=== PATIENT | female | born 1955 | race Caucasian/White ===

== ENCOUNTER → 2021-01-14 | Day surgery (SDC) | payer MEDICARE, OTHER ==
[~2021-01-14] VITALS: Ht 160 cm; Wt 96.2 kg
[~2021-01-14] MED LIST: ALLOPURINOL300 MG PO; ASPIRIN EC81 MG PO; CARAFATE1 GM PO; COLESTID 1GM TAB1 GM PO; DICLOFENAC SODI75 MG PO; GABAPENTIN600 MG PO; LASIX40 MG PO; LISINOPRIL20 MG PO; MACROBID100 MG PO; MIRALAX17 GM PO; PAXIL20 MG PO; PEPCID AC20 MG PO; PERCOCET 10-321 EACH PO; PERCOCET 5-3251 EACH PO; PRILOSEC20 MG PO; PROTONIX 40MG T40 MG PO; XANAX0.25 MG PO; ZOCOR20 MG PO; ZOFRAN4 M1 PO
[2021-01-14 08:38] LABS: HCT 25.8 % (37.0-47.0); HGB 8.1 g/dl (12.5-16.0); MCH 26.4 pg (25.0-31.0); MCHC 31.4 g/dL (32.0-36.0); MPV 8.5 fL (6.0-9.5); RBC 3.07 M/uL (4.20-5.40); RDW 13.9 % (11.5-14.0); WBC 8.2 K/uL (4.0-10.5)
[2021-01-14 09:27] LABS: ALBUMIN 2.9 g/dL (3.4-5.0); BILIRUBIN - TOTAL 0.5 mg/dL (0.2-1.0); BUN/CREAT RATIO (CALC) 18.7 RATIO; CREATININE 0.91 mg/dL (0.51-0.95); GLOBULIN (CALCULATION) 3.9 g/dL; POTASSIUM 3.7 mmol/L (3.5-5.1); TOTAL PROTEIN 6.8 g/dL (6.4-8.2)
== END | disposition home or self-care (01) ==
LOC: FAS 01-06 08:30
PROVIDERS: Surgery
DX: K25.7 Chronic gastric ulcer without hemorrhage or perforation (principal); B96.81 Helicobacter pylori [H. pylori] as the cause of diseases classified elsewhere; K21.9 Gastro-esophageal reflux disease without esophagitis; I10 Essential (primary) hypertension; J45.909 Unspecified asthma, uncomplicated; F31.9 Bipolar disorder, unspecified; I12.9 Hypertensive chronic kidney disease with stage 1 through stage 4 chronic kidney disease, or unspecified chronic kidney disease; N18.9 Chronic kidney disease, unspecified; I25.10 Atherosclerotic heart disease of native coronary artery without angina pectoris; F03.90 Unspecified dementia, unspecified severity, without behavioral disturbance, psychotic disturbance, mood disturbance, and anxiety; E11.65 Type 2 diabetes mellitus with hyperglycemia; E78.00 Pure hypercholesterolemia, unspecified; M81.0 Age-related osteoporosis without current pathological fracture; M06.9 Rheumatoid arthritis, unspecified; G47.30 Sleep apnea, unspecified; Z79.899 Other long term (current) drug therapy; Z90.710 Acquired absence of both cervix and uterus; Z91.041 Radiographic dye allergy status; Z90.49 Acquired absence of other specified parts of digestive tract; Z20.822 Contact with and (suspected) exposure to COVID-19
CPT/HCPCS: 36415; 80053; 88305; 88341; 88342; J1610; J2250; J2704; J7120

== ENCOUNTER 2021-04-14 16:44 | Inpatient (IN) | payer MEDICARE, OTHER ==
[~2021-04-14] VITALS: Ht 160 cm; Wt 81.3 kg
[~2021-04-14 16:44] MED LIST changes: -CARAFATE1 GM PO; -MACROBID100 MG PO; -MIRALAX17 GM PO; -PERCOCET 5-3251 EACH PO; -PRILOSEC20 MG PO; -XANAX0.25 MG PO; -ZOFRAN4 M1 PO
[2021-04-14 18:21] LABS: BASOPHIL 0.3 % (0-2); EOSINOPHIL 1.1 % (0-7); HCT 17.6 % (37.0-47.0); LYMPHOCYTE 16.4 % (15-48); MCH 21.3 pg (25.0-31.0); MCV 73.6 fL (78.0-100.0); MONOCYTE 7.1 % (0-12); MPV 8.8 fL (6.0-9.5); NEUTROPHIL 74.4 % (41-80); NRBC 0.5; PLT 613 K/uL (150-400); RBC 2.39 M/uL (4.20-5.40); RDW 16.2 % (11.5-14.0); WBC 8.8 K/uL (4.0-10.5)
[2021-04-14 18:22] LABS: HGB 5.1 g/dl (12.5-16.0)
[2021-04-14 18:26] LABS: ALBUMIN 2.9 g/dL (3.4-5.0); BILIRUBIN - TOTAL 0.3 mg/dL (0.2-1.0); BUN/CREAT RATIO (CALC) 20.5 RATIO; CREATININE 0.83 mg/dL (0.51-0.95); POTASSIUM 3.6 mmol/L (3.5-5.1); TOTAL PROTEIN 6.9 g/dL (6.4-8.2)
[2021-04-14 18:28] LABS: BILIRUBIN 1+ mg/dL (NEGATIVE); BLOOD NEGATIVE Ery/uL (NEGATIVE); COLOR YELLOW (YELLOW); GLUCOSE (U) NORMAL (NORMAL); LEUKOCYTES 1+ Leu/uL (NEGATIVE); NITRITE NEGATIVE (NEGATIVE); PROTEIN TRACE (LOW) mg/dL (NEGATIVE); SPECIFIC GRAVITY 1.025 (1.001-1.030); pH 5.5 (5.0-9.0)
[2021-04-14 18:34] LABS: CLARITY HAZY (CLEAR)
[2021-04-14 18:35] LABS: BACTERIA 1+; URINARY RBC RARE
[2021-04-14 18:36] LABS: MUCOUS TRACE; RENAL EPITHELIAL CELLS RARE
[2021-04-14 22:22] LABS: IRON % SATURATION 2.1 %SAT (20-50)
[2021-04-14] MEDS ORDERED: XANAX0.25 MG PO (23:49)
[2021-04-15 10:18] LABS: BASOPHIL 0.5 % (0-2); HCT 23.7 % (37.0-47.0); LYMPHOCYTE 13.3 % (15-48); MCH 24.6 pg (25.0-31.0); MCHC 32.1 g/dL (32.0-36.0); MCV 76.7 fL (78.0-100.0); MONOCYTE 7.3 % (0-12); MPV 8.4 fL (6.0-9.5); NEUTROPHIL 76.4 % (41-80); NRBC 0.3; PLT 377 K/uL (150-400); RBC 3.09 M/uL (4.20-5.40); RDW 16.9 % (11.5-14.0); WBC 6.5 K/uL (4.0-10.5)
[2021-04-15 10:21] LABS: HGB 7.6 g/dl (12.5-16.0)
[2021-04-15 10:36] LABS: BUN/CREAT RATIO (CALC) 25.8 RATIO; CREATININE 0.62 mg/dL (0.51-0.95); POTASSIUM 4.1 mmol/L (3.5-5.1)
[2021-04-15 16:06] LABS: HCT 23.7 % (37.0-47.0); HGB 7.5 g/dL (12.5-16.0)
[2021-04-15 23:09] LABS: HCT 22.9 % (37.0-47.0); HGB 7.4 g/dL (12.5-16.0)
[2021-04-16 09:34] LABS: BASOPHIL 0.4 % (0-2); EOSINOPHIL 2.5 % (0-7); HCT 31.4 % (37.0-47.0); LYMPHOCYTE 13.6 % (15-48); MCH 24.9 pg (25.0-31.0); MCHC 31.8 g/dL (32.0-36.0); MCV 78.3 fL (78.0-100.0); MONOCYTE 7.8 % (0-12); MPV 8.4 fL (6.0-9.5); NEUTROPHIL 75.2 % (41-80); NRBC 0.3; PLT 361 K/uL (150-400); RBC 4.01 M/uL (4.20-5.40); RDW 16.6 % (11.5-14.0); WBC 7.7 K/uL (4.0-10.5)
[2021-04-16 09:47] LABS: CREATININE 0.6 mg/dL (0.51-0.95); POTASSIUM 4.4 mmol/L (3.5-5.1)
--- NOTE | 2021-04-16 12:00 | NUR ---
MET WITH PT. ADVISED HER THAT THERAPY HAS RECOMMENDED HH WELL A RW. PT. WOULD LIKE TO WAIT BEFORE CHOOSING A HH UNTIL SHE SPEAKS WITH HER SONS. IT IS POSSIBLE SHE MAY GO TO STAY WITH HER SON WHO LIVES IN [facility]. SENT REQUEST TO PERLA AT [facility] FOR RW.
[2021-04-16 16:11] LABS: HCT 31.9 % (37.0-47.0)
[2021-04-16 16:15] LABS: HGB 10.5 g/dL (12.5-16.0)
[2021-04-17 04:44] LABS: BASOPHIL 0.6 % (0-2); EOSINOPHIL 2.6 % (0-7); HCT 30.5 % (37.0-47.0); HGB 9.6 g/dl (12.5-16.0); LYMPHOCYTE 22.2 % (15-48); MCH 24.9 pg (25.0-31.0); MCHC 31.5 g/dL (32.0-36.0); MONOCYTE 9.3 % (0-12); MPV 8.5 fL (6.0-9.5); NEUTROPHIL 64.7 % (41-80); NRBC 0; PLT 290 K/uL (150-400); RBC 3.86 M/uL (4.20-5.40); RDW 16.9 % (11.5-14.0); WBC 7.8 K/uL (4.0-10.5)
[2021-04-17 05:04] LABS: BUN/CREAT RATIO (CALC) 21.9 RATIO; CREATININE 0.73 mg/dL (0.51-0.95); POTASSIUM 4.2 mmol/L (3.5-5.1)
--- NOTE | 2021-04-17 11:01 | NUR ---
PT. WILL BE D/C HOME THIS DATE AND HER SON,RACIEL PEARSON, WILL BE STAYING WITH HER. SHE NEEDS TO GO THE PAIN CLINIC ON TUESDAY AT 3:30 P.M. AFTER THAT SHE WILL BE GOING TO HER SON'S HOME [place] [address] [place] [address] [phone]. NURSE, TOR, STATED THAT IT WOULD BE OK FOR HOMEHEALTH TO START ON TUESDAY WHEN THE PT. GOES TO THE SON'S HOME. PT AND SON IN AGREEMENT. PT. WILL BE GOING WITH JOSÉ LUIS AU. REFERRAL MADE THROUGH [facility]. [phone]. FAX [phone].
[2021-04-17] MEDS ORDERED: MIRALAX17 GM PO (17:38)
[2021-04-17] MEDS ORDERED: PERCOCET 10-321 EACH PO (17:38)
[2021-04-17] MEDS ORDERED: CARAFATE1 GM PO (17:38)
[2021-04-17] MEDS ORDERED: PROTONIX 40MG T40 MG PO (17:38)
[2021-04-17] MEDS ORDERED: ZOFRAN4 M1 PO (17:47)
[2021-04-17] MEDS ORDERED: PRILOSEC20 MG PO (18:03)
== END 2021-04-17 18:33 | disposition home health service (06) | DRG 841 ==
LOC: FER 16:44 → FMS 18:35
PROVIDERS: Emergency Medicine; Internal Medicine; Nurse Practitioner; Surgery; ADMIT Hospitalist
PROC: 30233N1 Transfusion of Nonautologous Red Blood Cells into Peripheral Vein, Percutaneous Approach (ICD-10-PCS; principal; 2021-04-14)
PROC: 0DB78ZX Excision of Stomach, Pylorus, Via Natural or Artificial Opening Endoscopic, Diagnostic (ICD-10-PCS; 2021-04-15)
PROC: 30233N1 Transfusion of Nonautologous Red Blood Cells into Peripheral Vein, Percutaneous Approach (ICD-10-PCS; 2021-04-15 12:45)
PROC: 30233N1 Transfusion of Nonautologous Red Blood Cells into Peripheral Vein, Percutaneous Approach (ICD-10-PCS; 2021-04-16)
DX: C85.99 Non-Hodgkin lymphoma, unspecified, extranodal and solid organ sites (principal); D62 Acute posthemorrhagic anemia; K92.1 Melena; I10 Essential (primary) hypertension; F41.1 Generalized anxiety disorder; E11.65 Type 2 diabetes mellitus with hyperglycemia; D86.9 Sarcoidosis, unspecified; M10.9 Gout, unspecified; E78.5 Hyperlipidemia, unspecified; G47.30 Sleep apnea, unspecified; G89.4 Chronic pain syndrome; Z20.822 Contact with and (suspected) exposure to COVID-19; F32.9 Major depressive disorder, single episode, unspecified; Z90.49 Acquired absence of other specified parts of digestive tract; Z90.710 Acquired absence of both cervix and uterus; Z98.890 Other specified postprocedural states; Z91.041 Radiographic dye allergy status; Z79.899 Other long term (current) drug therapy; Z87.11 Personal history of peptic ulcer disease
CPT/HCPCS: 36415; 36430; 70450; 80048; 80053; 81001; 82270; 82728; 83036; 83540; 83550; 84484; 85014; 85018; 85025; 86850; 86900; 86901; 86922; 87338; 97161; 97166; 97530-GP; 97535; C9113; G0378; J1200; J2250; J2704; J2916; J2930; J7030; J7050; J7120; P9016; Q9967; U0002

== ENCOUNTER 2021-05-17 19:09 | Emergency (ER) | payer MEDICARE, OTHER ==
[~2021-05-17 19:09] MED LIST changes: +CARAFATE1 GM PO; +MIRALAX17 GM PO; +PRILOSEC20 MG PO; +XANAX0.25 MG PO; +ZOFRAN4 M1 PO
[2021-05-17 19:45] LABS: BASOPHIL 0.4 % (0-2); EOSINOPHIL 1.3 % (0-7); HCT 28.5 % (37.0-47.0); HGB 9.1 g/dl (12.5-16.0); MCH 25.3 pg (25.0-31.0); MCHC 31.9 g/dL (32.0-36.0); MCV 79.4 fL (78.0-100.0); MONOCYTE 8.9 % (0-12); MPV 8.9 fL (6.0-9.5); NRBC 0.2; PLT 296 K/uL (150-400); RBC 3.59 M/uL (4.20-5.40); RDW 17.8 % (11.5-14.0); WBC 9.2 K/uL (4.0-10.5)
[2021-05-17 20:01] LABS: LACTIC ACID 1.3 mmol/L (0.4-1.9)
[2021-05-17 20:03] LABS: ALBUMIN 2.9 g/dL (3.4-5.0); BILIRUBIN - TOTAL 0.5 mg/dL (0.2-1.0); BUN/CREAT RATIO (CALC) 26.6 RATIO; CREATININE 0.64 mg/dL (0.51-0.95); GLOBULIN (CALCULATION) 3.7 g/dL; TOTAL PROTEIN 6.6 g/dL (6.4-8.2)
[2021-05-17 21:16] LABS: BILIRUBIN 1+ mg/dL (NEGATIVE); BLOOD NEGATIVE Ery/uL (NEGATIVE); CLARITY CLEAR (CLEAR); COLOR YELLOW (YELLOW); GLUCOSE (U) NORMAL (NORMAL); LEUKOCYTES TRACE Leu/uL (NEGATIVE); NITRITE NEGATIVE (NEGATIVE); PROTEIN 1+ mg/dL (NEGATIVE); SPECIFIC GRAVITY >=1.030 (1.001-1.030)
[2021-05-17 21:23] LABS: BACTERIA 2+; MUCOUS TRACE
[2021-05-17] MEDS ORDERED: MACROBID100 MG PO (22:43)
== END 2021-05-17 23:20 | disposition home or self-care (01) ==
LOC: FER 19:09
PROVIDERS: Emergency Medicine
DX: N39.0 Urinary tract infection, site not specified (principal); J98.6 Disorders of diaphragm; R41.0 Disorientation, unspecified; Z91.041 Radiographic dye allergy status
CPT/HCPCS: 36415; 70450; 71045; 80053; 81001; 83605; 83690; 84443; 85025; 87076; 87088; 87186; 93005

== ENCOUNTER 2021-05-23 14:44 | Inpatient (IN) | payer MEDICARE, OTHER ==
[~2021-05-23] VITALS: Ht 158 cm; Wt 74.5 kg
[~2021-05-23 14:44] MED LIST changes: +MACROBID100 MG PO
[2021-05-23 16:06] LABS: BASOPHIL 0.4 % (0-2); EOSINOPHIL 0.2 % (0-7); HCT 29.4 % (37.0-47.0); HGB 9.3 g/dl (12.5-16.0); LYMPHOCYTE 8.8 % (15-48); MCH 25.6 pg (25.0-31.0); MCHC 31.6 g/dL (32.0-36.0); MONOCYTE 5.1 % (0-12); MPV 9.2 fL (6.0-9.5); NRBC 0; PLT 408 K/uL (150-400); RBC 3.63 M/uL (4.20-5.40); RDW 17.6 % (11.5-14.0); WBC 10.3 K/uL (4.0-10.5)
[2021-05-23 16:10] LABS: INR 1.08 (0.9-1.2); PROTHROMBIN TIME 13.4 SECONDS (11.8-13.4)
[2021-05-23 16:21] LABS: LACTIC ACID 1.9 mmol/L (0.4-1.9)
[2021-05-23 16:23] LABS: ALBUMIN 2.6 g/dL (3.4-5.0); BILIRUBIN - TOTAL 0.5 mg/dL (0.2-1.0); BUN/CREAT RATIO (CALC) 52.7 RATIO; CREATININE 0.55 mg/dL (0.51-0.95); GLOBULIN (CALCULATION) 4.1 g/dL; POTASSIUM 4.7 mmol/L (3.5-5.1); TOTAL PROTEIN 6.7 g/dL (6.4-8.2)
[2021-05-23 20:40] LABS: BILIRUBIN 2+ mg/dL (NEGATIVE); BLOOD NEGATIVE Ery/uL (NEGATIVE); CLARITY CLEAR (CLEAR); COLOR YELLOW (YELLOW); GLUCOSE (U) NORMAL (NORMAL); LEUKOCYTES TRACE Leu/uL (NEGATIVE); NITRITE NEGATIVE (NEGATIVE); PROTEIN 1+ mg/dL (NEGATIVE)
[2021-05-23 20:45] LABS: BACTERIA 1+
[2021-05-23 21:37] LABS: HCT 25.1 % (37.0-47.0); HGB 7.7 g/dL (12.5-16.0)
[2021-05-24 04:14] LABS: BASOPHIL 0.3 % (0-2); EOSINOPHIL 0.4 % (0-7); HCT 19.9 % (37.0-47.0); LYMPHOCYTE 17.2 % (15-48); MCH 25.5 pg (25.0-31.0); MCHC 32.2 g/dL (32.0-36.0); MCV 79.3 fL (78.0-100.0); MONOCYTE 7.9 % (0-12); MPV 9.1 fL (6.0-9.5); NEUTROPHIL 73.7 % (41-80); NRBC 0; PLT 307 K/uL (150-400); RBC 2.51 M/uL (4.20-5.40); RDW 17.3 % (11.5-14.0)
[2021-05-24 04:19] LABS: HGB 6.4 g/dl (12.5-16.0)
[2021-05-24 04:39] LABS: ALBUMIN 1.9 g/dL (3.4-5.0); BILIRUBIN - TOTAL 0.3 mg/dL (0.2-1.0); BUN/CREAT RATIO (CALC) 51.9 RATIO; CREATININE 0.54 mg/dL (0.51-0.95); GLOBULIN (CALCULATION) 3.3 g/dL; POTASSIUM 3.6 mmol/L (3.5-5.1); TOTAL PROTEIN 5.2 g/dL (6.4-8.2)
--- NOTE | 2021-05-24 10:31 | NUR ---
PRBC FINISHED AT 1014, PATIENT TOLERATED WELL, NO ISSUES OR COMPLAINTS AT THIS TIME.
--- NOTE | 2021-05-24 10:39 | NUR ---
BLOOD PRUDUCT NOT DOCUMENTED IN TAR PER PREVIOUS SHIFT, SEE PAPER CHARTING.
[2021-05-24 11:17] LABS: HCT 26.2 % (37.0-47.0); HGB 8.8 g/dL (12.5-16.0)
[2021-05-24 17:08] LABS: HCT 26.5 % (37.0-47.0); HGB 8.8 g/dL (12.5-16.0)
[2021-05-24 17:28] LABS: RETICULOCYTE COUNT 2.9 % (1.0-2.0)
[2021-05-24 17:32] LABS: IRON % SATURATION 17.7 %SAT (20-50)
[2021-05-24 18:01] LABS: FOLIC ACID (SERUM) 2.4 ng/mL (8.6-58.9)
[2021-05-24 23:24] LABS: HCT 31.6 % (37.0-47.0); HGB 10.6 g/dL (12.5-16.0)
[2021-05-25 06:24] LABS: BASOPHIL 0.5 % (0-2); EOSINOPHIL 0.9 % (0-7); HCT 26.6 % (37.0-47.0); LYMPHOCYTE 15.8 % (15-48); MCH 26.4 pg (25.0-31.0); MCHC 32.7 g/dL (32.0-36.0); MCV 80.6 fL (78.0-100.0); NEUTROPHIL 75.5 % (41-80); NRBC 0; PLT 307 K/uL (150-400); WBC 6.3 K/uL (4.0-10.5)
[2021-05-25 06:27] LABS: CREATININE 0.5 mg/dL (0.51-0.95); HGB 8.7 g/dl (12.5-16.0); MAGNESIUM 1.1 mg/dL (1.8-2.4); POTASSIUM 3.6 mmol/L (3.5-5.1)
[2021-05-25 06:36] LABS: PRO-BNP 598 pg/mL (<125)
[2021-05-25 11:35] LABS: HCT 27.8 % (37.0-47.0); HGB 9.2 g/dL (12.5-16.0)
[2021-05-25 17:28] LABS: HCT 30.2 % (37.0-47.0); HGB 10.2 g/dL (12.5-16.0)
[2021-05-25 23:12] LABS: HCT 26.4 % (37.0-47.0)
--- NOTE | 2021-05-26 17:16 | NUR ---
05/26/21 Ms. Elder was in February. She has a son who lives in the home. However, family describes his as "staying to himself". Other family members plan to stay in the home upon discharge. - Ms. Elder has a rw, 3in1, wc, ramp and s. chair. A referral was made to [facility] per patient choice.
[2021-05-27 05:55] LABS: HCT 28.9 % (37.0-47.0); HGB 9.6 g/dl (12.5-16.0); MCH 26.5 pg (25.0-31.0); MCHC 33.2 g/dL (32.0-36.0); MCV 79.8 fL (78.0-100.0); RBC 3.62 M/uL (4.20-5.40); RDW 15.9 % (11.5-14.0); WBC 6.8 K/uL (4.0-10.5)
[2021-05-27 06:31] LABS: BUN/CREAT RATIO (CALC) 16.4 RATIO; CREATININE 0.61 mg/dL (0.51-0.95); POTASSIUM 3.4 mmol/L (3.5-5.1)
--- NOTE | 2021-05-27 11:42 | NUR ---
ENDO NURSE TO TRANSFER PT TO ENDO. VS STABLE AT TIME OF TRANSFER. IV PATIENT, PROXIMAL TO IV SITE, RED FROM PREVIOUS INFILTRATION. IV POTASSIUM AND PROTONIX STOPPED FOR PROCEDURE.
--- NOTE | 2021-05-27 14:06 | NUR ---
discussed patient's clinical characteristics dx of malnutrition with Karlie ALMAZAN; Dx of Acute Illness Severe malnutrition appropriate:information given to MD Bryan and nutrition assessment for documentation will be placed in [facility]
[2021-05-28 06:02] LABS: HCT 32.8 % (37.0-47.0); HGB 10.8 g/dl (12.5-16.0); MCH 26.5 pg (25.0-31.0); MCHC 32.9 g/dL (32.0-36.0); MCV 80.4 fL (78.0-100.0); MPV 8.9 fL (6.0-9.5); RBC 4.08 M/uL (4.20-5.40); RDW 15.8 % (11.5-14.0); WBC 7.7 K/uL (4.0-10.5)
[2021-05-28 06:15] LABS: BUN/CREAT RATIO (CALC) 17.5 RATIO; CREATININE 0.57 mg/dL (0.51-0.95); POTASSIUM 3.9 mmol/L (3.5-5.1)
--- NOTE | 2021-05-28 10:23 | NUR ---
05/28/21 [facility] reports to be unable to accept patient. [facility] has accepted patient. Raúl Virk, son, was updated. A report was given to Karlie OUTSOLE FLEXER.
[2021-05-29] MEDS ORDERED: XANAX0.25 MG PO (09:00)
--- NOTE | 2021-05-29 10:31 | NUR ---
DISCHARGE ORDERS RECEIVED. PER [facility] OK TO LEAVE PORT ACCESSED FOR CHEMO TREATMENT ON TUESDAY. FLUSHED WITH HEPARIN. PT FAMILY VERBALIZED UNDERSTANDING OF ALL DISCHARGE ORDERS AND APPOINTMENTS. PT TAKEN TO PT PICKUP PER WHEELCHAIR. PT HOME WITH HOME HEALTH.
== END 2021-05-29 10:35 | disposition home health service (06) | DRG 823 ==
LOC: FER 14:44 → FICU 17:54
PROVIDERS: Hospitalist; Nurse Practitioner; Physician Assistant; Student in an Organized Health Care Education/Training Program; Surgery; ADMIT Internal Medicine
PROC: 02HV33Z Insertion of Infusion Device into Superior Vena Cava, Percutaneous Approach (ICD-10-PCS; 2021-05-28)
PROC: B548ZZA Ultrasonography of Superior Vena Cava, Guidance (ICD-10-PCS; 2021-05-28)
PROC: B5181ZA Fluoroscopy of Superior Vena Cava using Low Osmolar Contrast, Guidance (ICD-10-PCS; 2021-05-28)
PROC: 0DJ08ZZ Inspection of Upper Intestinal Tract, Via Natural or Artificial Opening Endoscopic (ICD-10-PCS; 2021-05-28)
PROC: 0JH60WZ Insertion of Totally Implantable Vascular Access Device into Chest Subcutaneous Tissue and Fascia, Open Approach (ICD-10-PCS; principal; 2021-05-28 09:45)
DX: C83.39 Diffuse large B-cell lymphoma, extranodal and solid organ sites (principal); G93.41 Metabolic encephalopathy; E43 Unspecified severe protein-calorie malnutrition; K92.0 Hematemesis; C41.1 Malignant neoplasm of mandible; D62 Acute posthemorrhagic anemia; N30.00 Acute cystitis without hematuria; K92.1 Melena; Z20.822 Contact with and (suspected) exposure to COVID-19; E55.9 Vitamin D deficiency, unspecified; E53.8 Deficiency of other specified B group vitamins; E11.9 Type 2 diabetes mellitus without complications; K52.9 Noninfective gastroenteritis and colitis, unspecified; M10.9 Gout, unspecified; G89.29 Other chronic pain; I10 Essential (primary) hypertension; G47.30 Sleep apnea, unspecified; E78.5 Hyperlipidemia, unspecified; F41.1 Generalized anxiety disorder; F32.9 Major depressive disorder, single episode, unspecified; B96.20 Unspecified Escherichia coli [E. coli] as the cause of diseases classified elsewhere; K29.50 Unspecified chronic gastritis without bleeding; Z88.8 Allergy status to other drugs, medicaments and biological substances; Z90.49 Acquired absence of other specified parts of digestive tract; Z90.710 Acquired absence of both cervix and uterus; Z90.89 Acquired absence of other organs; Z98.890 Other specified postprocedural states; Z80.8 Family history of malignant neoplasm of other organs or systems; Z79.899 Other long term (current) drug therapy; Z68.29 Body mass index [BMI] 29.0-29.9, adult
CPT/HCPCS: 36415; 36430; 70450; 70553; 71045; 76000; 80048; 80053; 81001; 82140; 82607; 82746; 83540; 83550; 83605; 83735; 83880; 84484; 85014; 85018; 85025; 85610; 94010; 97116; 97161; 97166; 97530; 97530-GP; 97535; C1788; C9113; J0696; J1100; J1170; J1642; J1644; J1885; J2060; J2405; J2704; J2916; J3010; J3420; J3480; J3486; J7030; J7120; P9016; U0002

== ENCOUNTER 2021-06-05 09:15 | Inpatient (IN) | payer MEDICARE, OTHER ==
[~2021-06-05] VITALS: Ht 160 cm; Wt 77.1 kg
[2021-06-05 09:46] LABS: BASOPHIL 0.2 % (0-2); EOSINOPHIL 0 % (0-7); HCT 17.3 % (37.0-47.0); LYMPHOCYTE 0.3 % (15-48); MCH 26.4 pg (25.0-31.0); MCHC 32.4 g/dL (32.0-36.0); MCV 81.6 fL (78.0-100.0); MONOCYTE 0.3 % (0-12); NEUTROPHIL 88.8 % (41-80); NRBC 0; PLT 311 K/uL (150-400); RBC 2.12 M/uL (4.20-5.40); RDW 16.1 % (11.5-14.0)
[2021-06-05 09:59] LABS: HGB 5.6 g/dl (12.5-16.0); WBC 41.6 K/uL (4.0-10.5)
[2021-06-05 10:19] LABS: ALBUMIN 2.5 g/dL (3.4-5.0); BILIRUBIN - TOTAL 0.5 mg/dL (0.2-1.0); BUN/CREAT RATIO (CALC) 72.6 RATIO; CREATININE 0.62 mg/dL (0.51-0.95); GLOBULIN (CALCULATION) 2.9 g/dL; POTASSIUM 3.7 mmol/L (3.5-5.1); TOTAL PROTEIN 5.4 g/dL (6.4-8.2)
[2021-06-05 11:17] LABS: LACTIC ACID 4.1 mmol/L (0.4-1.9)
[2021-06-05 16:43] LABS: RETICULOCYTE COUNT 0.8 % (1.0-2.0)
[2021-06-05 16:54] LABS: IRON % SATURATION 90.7 %SAT (20-50)
[2021-06-05 17:26] LABS: FOLIC ACID (SERUM) 1.8 ng/mL (8.6-58.9)
[2021-06-05 22:29] LABS: HCT 23.8 % (37.0-47.0); MCH 26.4 pg (25.0-31.0); MCHC 32.8 g/dL (32.0-36.0); MCV 80.7 fL (78.0-100.0); MPV 9.7 fL (6.0-9.5); RBC 2.95 M/uL (4.20-5.40); RDW 15.9 % (11.5-14.0); WBC 18.6 K/uL (4.0-10.5)
[2021-06-05 22:30] LABS: HGB 7.8 g/dl (12.5-16.0)
[2021-06-06 05:15] LABS: BASOPHIL 0.7 % (0-2); EOSINOPHIL 0.2 % (0-7); HCT 19.9 % (37.0-47.0); LYMPHOCYTE 1.9 % (15-48); MCH 26.4 pg (25.0-31.0); MCHC 32.7 g/dL (32.0-36.0); MCV 80.9 fL (78.0-100.0); MONOCYTE 0.5 % (0-12); MPV 9.8 fL (6.0-9.5); NEUTROPHIL 78.2 % (41-80); NRBC 0; PLT 135 K/uL (150-400); RBC 2.46 M/uL (4.20-5.40); RDW 16.2 % (11.5-14.0); WBC 10.5 K/uL (4.0-10.5)
[2021-06-06 05:16] LABS: HGB 6.5 g/dl (12.5-16.0)
[2021-06-06 05:32] LABS: CREATININE 0.64 mg/dL (0.51-0.95); MAGNESIUM 1.2 mg/dL (1.8-2.4); POTASSIUM 3.1 mmol/L (3.5-5.1)
[2021-06-06 06:35] LABS: BILIRUBIN NEGATIVE (NEGATIVE); BLOOD 1+ Ery/uL (NEGATIVE); CLARITY CLEAR (CLEAR); COLOR YELLOW (YELLOW); GLUCOSE (U) NORMAL (NORMAL); LEUKOCYTES NEGATIVE Leu/uL (NEGATIVE); NITRITE NEGATIVE (NEGATIVE); PROTEIN TRACE (LOW) mg/dL (NEGATIVE); UROBILINOGEN 0.2 mg/dL (0.2-1.0)
[2021-06-06 06:44] LABS: YEAST PRESENT
[2021-06-06 23:38] LABS: HCT 28.4 % (37.0-47.0); HGB 9.4 g/dL (12.5-16.0)
[2021-06-07 04:17] LABS: EOSINOPHIL 1.7 % (0-7); HCT 27.1 % (37.0-47.0); LYMPHOCYTE 2.8 % (15-48); MCH 27.1 pg (25.0-31.0); MCHC 33.2 g/dL (32.0-36.0); MCV 81.6 fL (78.0-100.0); MONOCYTE 0.6 % (0-12); MPV 9.8 fL (6.0-9.5); NRBC 0; PLT 101 K/uL (150-400); RBC 3.32 M/uL (4.20-5.40); RDW 15.7 % (11.5-14.0); WBC 3.5 K/uL (4.0-10.5)
[2021-06-07 04:18] LABS: NEUTROPHIL 67.6 % (41-80)
[2021-06-07 04:52] LABS: ALBUMIN 1.9 g/dL (3.4-5.0); BILIRUBIN - TOTAL 1.5 mg/dL (0.2-1.0); BUN/CREAT RATIO (CALC) 27.1 RATIO; CREATININE 0.59 mg/dL (0.51-0.95); GLOBULIN (CALCULATION) 3.1 g/dL; MAGNESIUM 1.5 mg/dL (1.8-2.4); PHOSPHORUS 2.8 mg/dL (2.6-4.7); POTASSIUM 3.4 mmol/L (3.5-5.1)
[2021-06-07 17:54] LABS: HCT 28.1 % (37.0-47.0); HGB 9.5 g/dL (12.5-16.0)
[2021-06-08 05:56] LABS: BASOPHIL 2.5 % (0-2); EOSINOPHIL 12.5 % (0-7); HCT 28.7 % (37.0-47.0); HGB 9.5 g/dl (12.5-16.0); MCHC 33.1 g/dL (32.0-36.0); MCV 81.5 fL (78.0-100.0); MONOCYTE 7.5 % (0-12); MPV 10.8 fL (6.0-9.5); NEUTROPHIL 57.5 % (41-80); PLT 99 K/uL (150-400); RBC 3.52 M/uL (4.20-5.40); RDW 14.9 % (11.5-14.0)
[2021-06-08 06:09] LABS: WBC 0.4 K/uL (4.0-10.5)
[2021-06-08 06:14] LABS: BUN/CREAT RATIO (CALC) 18.5 RATIO; CREATININE 0.54 mg/dL (0.51-0.95); MAGNESIUM 1.6 mg/dL (1.8-2.4); POTASSIUM 3.6 mmol/L (3.5-5.1)
[2021-06-08 07:48] LABS: EOSINOPHIL(M) 4 % (0-7); LYMPHOCYTE(M) 20 % (15-48); MONOCYTE(M) 8 % (0-12); NEUTROPHILS(M) 68 % (41-80); NRBC 0; TOTAL CELL COUNT 25
[2021-06-08 07:50] LABS: PLATELET ESTIMATE DECREASED; PLATELET MORPHOLOGY NORMAL
[2021-06-08 07:52] LABS: ANISOCYTOSIS SLIGHT; DACRYOCYTES (TEAR DROP CELLS) 1+; POIKILOCYTOSIS SLIGHT
[2021-06-09 00:46] LABS: HCT 28.7 % (37.0-47.0); HGB 9.5 g/dL (12.5-16.0)
[2021-06-09 04:45] LABS: BASOPHIL 0 % (0-2); EOSINOPHIL 18.2 % (0-7); HCT 28.6 % (37.0-47.0); LYMPHOCYTE 45.5 % (15-48); MCH 26.6 pg (25.0-31.0); MCHC 31.5 g/dL (32.0-36.0); MCV 84.6 fL (78.0-100.0); MONOCYTE 22.7 % (0-12); MPV 11.5 fL (6.0-9.5); NRBC 0; PLT 87 K/uL (150-400); RBC 3.38 M/uL (4.20-5.40); RDW 14.8 % (11.5-14.0)
[2021-06-09 04:49] LABS: NEUTROPHIL 13.6 % (41-80); WBC 0.2 K/uL (4.0-10.5)
[2021-06-09 05:13] LABS: BUN/CREAT RATIO (CALC) 15.3 RATIO; CREATININE 0.59 mg/dL (0.51-0.95); POTASSIUM 3.1 mmol/L (3.5-5.1)
[2021-06-10 05:13] LABS: BASOPHIL 2.2 % (0-2); HCT 27.7 % (37.0-47.0); LYMPHOCYTE 34.8 % (15-48); MCH 26.8 pg (25.0-31.0); MCHC 32.5 g/dL (32.0-36.0); MCV 82.4 fL (78.0-100.0); MONOCYTE 21.7 % (0-12); MPV 10.8 fL (6.0-9.5); NEUTROPHIL 28.3 % (41-80); NRBC 0; RBC 3.36 M/uL (4.20-5.40); RDW 14.5 % (11.5-14.0)
[2021-06-10 05:14] LABS: BUN/CREAT RATIO (CALC) 14.3 RATIO; CREATININE 0.63 mg/dL (0.51-0.95); MAGNESIUM 1.2 mg/dL (1.8-2.4); PHOSPHORUS 2.5 mg/dL (2.6-4.7)
[2021-06-10 05:52] LABS: PLT 84 K/uL (150-400)
[2021-06-10 05:53] LABS: WBC 0.5 K/uL (4.0-10.5)
[2021-06-11 06:06] LABS: BASOPHIL 3.7 % (0-2); EOSINOPHIL 9.2 % (0-7); HGB 10.8 g/dl (12.5-16.0); MCH 26.9 pg (25.0-31.0); MCHC 32.7 g/dL (32.0-36.0); MCV 82.1 fL (78.0-100.0); MPV 10.6 fL (6.0-9.5); NEUTROPHIL 41.3 % (41-80); NRBC 0; PLT 109 K/uL (150-400); RBC 4.02 M/uL (4.20-5.40); RDW 14.5 % (11.5-14.0)
[2021-06-11 06:11] LABS: BUN/CREAT RATIO (CALC) 12.9 RATIO; CREATININE 0.62 mg/dL (0.51-0.95); MAGNESIUM 1.6 mg/dL (1.8-2.4); PHOSPHORUS 1.8 mg/dL (2.6-4.7); POTASSIUM 3.1 mmol/L (3.5-5.1)
[2021-06-11 06:56] LABS: WBC 1.1 K/uL (4.0-10.5)
[2021-06-11 11:30] LABS: BUN/CREAT RATIO (CALC) 14.3 RATIO; CREATININE 0.63 mg/dL (0.51-0.95)
[2021-06-11 11:31] LABS: MAGNESIUM 2.2 mg/dL (1.8-2.4)
[2021-06-11] MEDS ORDERED: PERCOCET 5-3251 EACH PO (13:22)
[2021-06-12 06:28] LABS: BASOPHIL 2.7 % (0-2); EOSINOPHIL 8.2 % (0-7); HCT 31.7 % (37.0-47.0); HGB 10.4 g/dl (12.5-16.0); LYMPHOCYTE 14.1 % (15-48); MCHC 32.8 g/dL (32.0-36.0); MCV 82.3 fL (78.0-100.0); MONOCYTE 19.2 % (0-12); MPV 10.8 fL (6.0-9.5); NEUTROPHIL 48.2 % (41-80); NRBC 0; PLT 133 K/uL (150-400); RBC 3.85 M/uL (4.20-5.40); RDW 14.9 % (11.5-14.0)
[2021-06-12 06:31] LABS: WBC 2.9 K/uL (4.0-10.5)
[2021-06-12 06:32] LABS: BUN/CREAT RATIO (CALC) 10.9 RATIO; CREATININE 0.64 mg/dL (0.51-0.95); POTASSIUM 2.7 mmol/L (3.5-5.1)
[2021-06-12 06:33] LABS: MAGNESIUM 1.4 mg/dL (1.8-2.4)
[2021-06-13 06:11] LABS: BASOPHIL 0.6 % (0-2); EOSINOPHIL 8.5 % (0-7); HGB 10.6 g/dl (12.5-16.0); MCH 26.4 pg (25.0-31.0); MCHC 32.1 g/dL (32.0-36.0); MCV 82.1 fL (78.0-100.0); MONOCYTE 16.6 % (0-12); MPV 10.5 fL (6.0-9.5); NEUTROPHIL 55.4 % (41-80); NRBC 0; PLT 194 K/uL (150-400); RBC 4.02 M/uL (4.20-5.40); RDW 15.1 % (11.5-14.0)
[2021-06-13 06:14] LABS: WBC 4.9 K/uL (4.0-10.5)
[2021-06-13 06:30] LABS: BUN/CREAT RATIO (CALC) 14.5 RATIO; CREATININE 0.69 mg/dL (0.51-0.95); MAGNESIUM 1.7 mg/dL (1.8-2.4); POTASSIUM 3.6 mmol/L (3.5-5.1)
[2021-06-15 05:59] LABS: BASOPHIL 0.7 % (0-2); EOSINOPHIL 9.7 % (0-7); HCT 31.4 % (37.0-47.0); HGB 10.2 g/dl (12.5-16.0); LYMPHOCYTE 12.9 % (15-48); MCH 26.8 pg (25.0-31.0); MCHC 32.5 g/dL (32.0-36.0); MCV 82.6 fL (78.0-100.0); MONOCYTE 17.4 % (0-12); MPV 10.1 fL (6.0-9.5); NEUTROPHIL 48.2 % (41-80); NRBC 0.4; PLT 308 K/uL (150-400); RDW 15.6 % (11.5-14.0)
[2021-06-15 06:01] LABS: WBC 6.8 K/uL (4.0-10.5)
[2021-06-15 06:08] LABS: BUN/CREAT RATIO (CALC) 11.5 RATIO; CREATININE 1.13 mg/dL (0.51-0.95); MAGNESIUM 1.5 mg/dL (1.8-2.4); POTASSIUM 3.6 mmol/L (3.5-5.1)
[2021-06-16 07:10] LABS: BASOPHIL 0.5 % (0-2); EOSINOPHIL 7.8 % (0-7); HGB 10.3 g/dl (12.5-16.0); LYMPHOCYTE 11.5 % (15-48); MCH 26.8 pg (25.0-31.0); MCHC 32.2 g/dL (32.0-36.0); MCV 83.1 fL (78.0-100.0); MONOCYTE 11.1 % (0-12); MPV 9.6 fL (6.0-9.5); NEUTROPHIL 56.1 % (41-80); NRBC 0.8; PLT 336 K/uL (150-400); RBC 3.85 M/uL (4.20-5.40); RDW 15.8 % (11.5-14.0); WBC 8.6 K/uL (4.0-10.5)
[2021-06-16 07:16] LABS: BILIRUBIN - TOTAL 0.4 mg/dL (0.2-1.0); BUN/CREAT RATIO (CALC) 10.5 RATIO; CREATININE 1.33 mg/dL (0.51-0.95); GLOBULIN (CALCULATION) 3.4 g/dL; POTASSIUM 4.3 mmol/L (3.5-5.1); TOTAL PROTEIN 5.4 g/dL (6.4-8.2)
[2021-06-16 07:26] LABS: MAGNESIUM 2.4 mg/dL (1.8-2.4)
[2021-06-17 06:55] LABS: BUN/CREAT RATIO (CALC) 11.8 RATIO; CREATININE 1.27 mg/dL (0.51-0.95); POTASSIUM 4.4 mmol/L (3.5-5.1)
[2021-06-17] MEDS ORDERED: HEPARIN 3010 UNIT/1 IV (15:48)
[2021-06-17] MEDS ORDERED: [UNRECOGNIZED DRUG - OTHER] IV (15:48)
[2021-06-17] MEDS ORDERED: MEGACE ORA6 TSP/1 OZ PO (15:48)
[2021-06-17] MEDS ORDERED: SILVASORB44.4 ML TOP ×2 (15:48)
== END 2021-06-17 19:15 | DRG 853 ==
LOC: FER 09:15 → FTCU 10:47
PROVIDERS: Emergency Medicine; Internal Medicine; Nurse Practitioner; Nurse Practitioner Family; ADMIT Internal Medicine
PROC: 30233N1 Transfusion of Nonautologous Red Blood Cells into Peripheral Vein, Percutaneous Approach (ICD-10-PCS; principal; 2021-06-05)
PROC: 30233N1 Transfusion of Nonautologous Red Blood Cells into Peripheral Vein, Percutaneous Approach (ICD-10-PCS; 2021-06-06)
PROC: 02PY03Z Removal of Infusion Device from Great Vessel, Open Approach (ICD-10-PCS; 2021-06-11)
PROC: 02HV33Z Insertion of Infusion Device into Superior Vena Cava, Percutaneous Approach (ICD-10-PCS; 2021-06-17)
PROC: B548ZZA Ultrasonography of Superior Vena Cava, Guidance (ICD-10-PCS; 2021-06-17)
DX: B37.7 Candidal sepsis (principal); D61.810 Antineoplastic chemotherapy induced pancytopenia; K25.5 Chronic or unspecified gastric ulcer with perforation; G93.41 Metabolic encephalopathy; C83.33 Diffuse large B-cell lymphoma, intra-abdominal lymph nodes; C41.1 Malignant neoplasm of mandible; E87.2 Acidosis; K92.1 Melena; I47.2 Ventricular tachycardia; N17.9 Acute kidney failure, unspecified; I27.20 Pulmonary hypertension, unspecified; R65.20 Severe sepsis without septic shock; Z20.822 Contact with and (suspected) exposure to COVID-19; R62.7 Adult failure to thrive; E53.8 Deficiency of other specified B group vitamins; L89.326 Pressure-induced deep tissue damage of left buttock; L89.316 Pressure-induced deep tissue damage of right buttock; D64.9 Anemia, unspecified; F41.1 Generalized anxiety disorder; F32.9 Major depressive disorder, single episode, unspecified; G47.33 Obstructive sleep apnea (adult) (pediatric); M10.9 Gout, unspecified; K29.50 Unspecified chronic gastritis without bleeding; E55.9 Vitamin D deficiency, unspecified; M54.9 Dorsalgia, unspecified; M19.90 Unspecified osteoarthritis, unspecified site; E87.6 Hypokalemia; E83.42 Hypomagnesemia; G89.29 Other chronic pain; R53.1 Weakness; T45.1X5A Adverse effect of antineoplastic and immunosuppressive drugs, initial encounter; D70.1 Agranulocytosis secondary to cancer chemotherapy; R33.9 Retention of urine, unspecified; F03.90 Unspecified dementia, unspecified severity, without behavioral disturbance, psychotic disturbance, mood disturbance, and anxiety; D86.9 Sarcoidosis, unspecified; Z82.49 Family history of ischemic heart disease and other diseases of the circulatory system; Z90.49 Acquired absence of other specified parts of digestive tract; Z82.3 Family history of stroke; Z88.8 Allergy status to other drugs, medicaments and biological substances; Z82.5 Family history of asthma and other chronic lower respiratory diseases; Z91.041 Radiographic dye allergy status; Z79.899 Other long term (current) drug therapy; Z90.711 Acquired absence of uterus with remaining cervical stump
CPT/HCPCS: 36415; 36430; 71045; 74150; 80048; 80053; 80202; 81001; 82140; 82607; 82746; 83540; 83550; 83605; 83690; 83735; 83880; 84100; 84145; 84443; 85014; 85018; 85025; 86850; 86900; 86901; 86922; 87040; 87070; 87075; 87077; 87205; 94010; 94760; 94762; 96377; 97110; 97161; 97166; 97530; 97530-GP; 97535; C1751; C9113; J0282; J0637; J1100; J1447; J1642; J2354; J2405; J2505; J2543; J2704; J3370; J3475; J3480; J7030; J7040; J7050; J7060; J7120; J9181; P9016; U0002

== ENCOUNTER 2021-06-26 17:10 | Inpatient (IN) | payer MEDICARE, OTHER ==
[~2021-06-26] VITALS: Ht 160 cm; Wt 80.8 kg
[~2021-06-26 17:10] MED LIST changes: +HEPARIN 3010 UNIT/1 IV; +MEGACE ORA6 TSP/1 OZ PO; +PERCOCET 5-3251 EACH PO; +SILVASORB44.4 ML TOP; +[UNRECOGNIZED DRUG - OTHER] IV
[2021-06-26 18:28] LABS: BASOPHIL 0.6 % (0-2); EOSINOPHIL 0.5 % (0-7); HCT 24.2 % (37.0-47.0); HGB 7.4 g/dl (12.5-16.0); LYMPHOCYTE 4.9 % (15-48); MCH 27.7 pg (25.0-31.0); MCHC 30.6 g/dL (32.0-36.0); MONOCYTE 6.3 % (0-12); MPV 9.8 fL (6.0-9.5); NEUTROPHIL 85.3 % (41-80); NRBC 0.2; PLT 391 K/uL (150-400); RBC 2.67 M/uL (4.20-5.40); RDW 20.1 % (11.5-14.0); WBC 16.5 K/uL (4.0-10.5)
[2021-06-26 18:31] LABS: BILIRUBIN NEGATIVE (NEGATIVE); BLOOD NEGATIVE Ery/uL (NEGATIVE); CLARITY CLEAR (CLEAR); COLOR YELLOW (YELLOW); GLUCOSE (U) NORMAL (NORMAL); LEUKOCYTES NEGATIVE Leu/uL (NEGATIVE); NITRITE NEGATIVE (NEGATIVE); PROTEIN NEGATIVE (NEGATIVE); SPECIFIC GRAVITY 1.025 (1.001-1.030); UROBILINOGEN 0.2 mg/dL (0.2-1.0); pH 5.5 (5.0-9.0)
[2021-06-26 18:32] LABS: INR 1.13 (0.9-1.2); PROTHROMBIN TIME 13.9 SECONDS (11.8-13.4); PTT 29.9 SECONDS (24.4-34.7)
[2021-06-26 18:42] LABS: ALBUMIN 2.3 g/dL (3.4-5.0); BILIRUBIN - TOTAL 0.2 mg/dL (0.2-1.0); BUN/CREAT RATIO (CALC) 29.9 RATIO; CREATININE 1.34 mg/dL (0.51-0.95); GLOBULIN (CALCULATION) 3.4 g/dL; POTASSIUM 4.1 mmol/L (3.5-5.1); TOTAL PROTEIN 5.7 g/dL (6.4-8.2)
[2021-06-26 18:45] LABS: MCV 90.6 fL (78.0-100.0)
[2021-06-26 18:46] LABS: LACTIC ACID 2.1 mmol/L (0.4-1.9)
[2021-06-27 03:19] LABS: HCT 27.3 % (37.0-47.0); HGB 8.6 g/dL (12.5-16.0)
[2021-06-27 08:25] LABS: BASOPHIL 0.4 % (0-2); EOSINOPHIL 0.1 % (0-7); HCT 30.5 % (37.0-47.0); LYMPHOCYTE 2.6 % (15-48); MCHC 31.8 g/dL (32.0-36.0); MCV 88.2 fL (78.0-100.0); MONOCYTE 0.8 % (0-12); MPV 9.3 fL (6.0-9.5); NRBC 0.1; PLT 326 K/uL (150-400); RBC 3.46 M/uL (4.20-5.40); RDW 18.9 % (11.5-14.0); WBC 14.2 K/uL (4.0-10.5)
[2021-06-27 08:26] LABS: HGB 9.7 g/dl (12.5-16.0); NEUTROPHIL 94.6 % (41-80)
[2021-06-27 08:45] LABS: BUN/CREAT RATIO (CALC) 28.7 RATIO; CREATININE 1.36 mg/dL (0.51-0.95); POTASSIUM 4.5 mmol/L (3.5-5.1)
[2021-06-28 03:25] LABS: BASOPHIL 0.2 % (0-2); EOSINOPHIL 0 % (0-7); HCT 25.5 % (37.0-47.0); MCH 27.8 pg (25.0-31.0); MCHC 31.4 g/dL (32.0-36.0); MCV 88.5 fL (78.0-100.0); MONOCYTE 2.2 % (0-12); MPV 9.5 fL (6.0-9.5); NRBC 0.2; PLT 355 K/uL (150-400); RBC 2.88 M/uL (4.20-5.40); RDW 19.1 % (11.5-14.0); WBC 12.6 K/uL (4.0-10.5)
[2021-06-28 03:27] LABS: NEUTROPHIL 90.3 % (41-80)
[2021-06-28 03:45] LABS: BUN/CREAT RATIO (CALC) 28.3 RATIO; CREATININE 1.66 mg/dL (0.51-0.95); POTASSIUM 4.3 mmol/L (3.5-5.1)
[2021-06-28 16:03] LABS: HCT 24.8 % (37.0-47.0); HGB 7.7 g/dl (12.5-16.0); MCH 27.7 pg (25.0-31.0); MCV 89.2 fL (78.0-100.0); MPV 9.3 fL (6.0-9.5); RBC 2.78 M/uL (4.20-5.40); WBC 14.5 K/uL (4.0-10.5)
[2021-06-28 16:19] LABS: CREATININE 1.68 mg/dL (0.51-0.95); POTASSIUM 4.1 mmol/L (3.5-5.1)
[2021-06-29 04:14] LABS: BASOPHIL 0.1 % (0-2); EOSINOPHIL 0 % (0-7); HCT 24.8 % (37.0-47.0); HGB 7.7 g/dl (12.5-16.0); LYMPHOCYTE 2.8 % (15-48); MCH 27.8 pg (25.0-31.0); MCV 89.5 fL (78.0-100.0); MONOCYTE 3.2 % (0-12); MPV 9.3 fL (6.0-9.5); NEUTROPHIL 90.6 % (41-80); NRBC 0.1; PLT 331 K/uL (150-400); RBC 2.77 M/uL (4.20-5.40); RDW 18.9 % (11.5-14.0); WBC 15.2 K/uL (4.0-10.5)
[2021-06-29 04:34] LABS: BUN/CREAT RATIO (CALC) 27.9 RATIO; CREATININE 1.72 mg/dL (0.51-0.95)
--- NOTE | 2021-06-29 15:11 | NUR ---
06/29/21 [facility] will accept patient back per [facility]o. Raúl Virk, son, wishes for her to return to [facility] as well.
[2021-06-30 05:52] LABS: BASOPHIL 0.2 % (0-2); EOSINOPHIL 0 % (0-7); HCT 25.7 % (37.0-47.0); HGB 7.9 g/dl (12.5-16.0); LYMPHOCYTE 3.1 % (15-48); MCH 27.9 pg (25.0-31.0); MCHC 30.7 g/dL (32.0-36.0); MCV 90.8 fL (78.0-100.0); MPV 9.6 fL (6.0-9.5); NEUTROPHIL 86.7 % (41-80); NRBC 0.1; PLT 306 K/uL (150-400); RBC 2.83 M/uL (4.20-5.40); RDW 18.5 % (11.5-14.0); WBC 14.9 K/uL (4.0-10.5)
[2021-06-30 06:12] LABS: BUN/CREAT RATIO (CALC) 28.1 RATIO; CREATININE 1.46 mg/dL (0.51-0.95); MAGNESIUM 1.5 mg/dL (1.8-2.4); POTASSIUM 3.7 mmol/L (3.5-5.1)
--- NOTE | 2021-06-30 15:05 | NUR ---
added ONS Cost to patient's trays to increase energy/protein intakes. patient verbalized this to be her favorite when interviewed; most information did not make sense, however she seemed to understand this flavor.
[2021-07-01 05:50] LABS: BASOPHIL 0.4 % (0-2); EOSINOPHIL 0 % (0-7); HCT 27.4 % (37.0-47.0); HGB 8.4 g/dl (12.5-16.0); LYMPHOCYTE 1.6 % (15-48); MCH 28.2 pg (25.0-31.0); MCHC 30.7 g/dL (32.0-36.0); MCV 91.9 fL (78.0-100.0); MONOCYTE 3.4 % (0-12); MPV 9.5 fL (6.0-9.5); NEUTROPHIL 87.1 % (41-80); NRBC 0.2; PLT 307 K/uL (150-400); RBC 2.98 M/uL (4.20-5.40)
[2021-07-01 05:52] LABS: WBC 20.5 K/uL (4.0-10.5)
[2021-07-01 06:02] LABS: ALBUMIN 2.5 g/dL (3.4-5.0); BILIRUBIN - TOTAL 0.3 mg/dL (0.2-1.0); BUN/CREAT RATIO (CALC) 27.4 RATIO; CREATININE 1.24 mg/dL (0.51-0.95); GLOBULIN (CALCULATION) 3.1 g/dL; POTASSIUM 3.8 mmol/L (3.5-5.1); TOTAL PROTEIN 5.6 g/dL (6.4-8.2)
[2021-07-02 06:00] LABS: BASOPHIL 0.3 % (0-2); EOSINOPHIL 0 % (0-7); HCT 26.6 % (37.0-47.0); HGB 8.4 g/dl (12.5-16.0); LYMPHOCYTE 3.3 % (15-48); MCH 28.4 pg (25.0-31.0); MCHC 31.6 g/dL (32.0-36.0); MCV 89.9 fL (78.0-100.0); MONOCYTE 3.6 % (0-12); MPV 9.9 fL (6.0-9.5); NEUTROPHIL 88.3 % (41-80); NRBC 0.1; PLT 287 K/uL (150-400); RBC 2.96 M/uL (4.20-5.40); RDW 17.6 % (11.5-14.0); WBC 17.5 K/uL (4.0-10.5)
[2021-07-02 06:27] LABS: BUN/CREAT RATIO (CALC) 29.5 RATIO; CREATININE 1.05 mg/dL (0.51-0.95); POTASSIUM 3.7 mmol/L (3.5-5.1)
[2021-07-02 14:25] LABS: BILIRUBIN NEGATIVE (NEGATIVE); BLOOD TRACE-INTACT Ery/uL (NEGATIVE); CLARITY CLEAR (CLEAR); COLOR YELLOW (YELLOW); GLUCOSE (U) NORMAL (NORMAL); LEUKOCYTES NEGATIVE Leu/uL (NEGATIVE); NITRITE NEGATIVE (NEGATIVE); PROTEIN NEGATIVE (NEGATIVE); SPECIFIC GRAVITY 1.015 (1.001-1.030); UROBILINOGEN 0.2 mg/dL (0.2-1.0); pH 5.5 (5.0-9.0)
--- NOTE | 2021-07-03 14:54 | NUR ---
1300--PATIENT TRANSFERRED FROM TCU. LABORED BREATHING.
--- NOTE | 2021-07-03 15:55 | NUR ---
07/03/21 Valentin Velasco was informed of possible return on 07/04/21. Please call report to: [phone] and fax DS to: [phone].
[2021-07-04 05:10] LABS: BASOPHIL 0.1 % (0-2); EOSINOPHIL 2.1 % (0-7); HGB 8.7 g/dl (12.5-16.0); LYMPHOCYTE 2.7 % (15-48); MCHC 32.2 g/dL (32.0-36.0); MCV 86.8 fL (78.0-100.0); MONOCYTE 4.8 % (0-12); MPV 9.2 fL (6.0-9.5); NEUTROPHIL 88.8 % (41-80); NRBC 0; PLT 229 K/uL (150-400); RBC 3.11 M/uL (4.20-5.40); RDW 17.2 % (11.5-14.0); WBC 10.9 K/uL (4.0-10.5)
[2021-07-04 05:43] LABS: BUN/CREAT RATIO (CALC) 25.3 RATIO; CREATININE 0.75 mg/dL (0.51-0.95); MAGNESIUM 1.2 mg/dL (1.8-2.4); POTASSIUM 2.7 mmol/L (3.5-5.1)
[2021-07-04] MEDS ORDERED: SANTYL15 GM TOP (16:57)
[2021-07-04] MEDS ORDERED: SILVASORB44.4 ML TOP (16:57)
[2021-07-04] MEDS ORDERED: DULCOLAX5 MG PO (16:57)
[2021-07-04] MEDS ORDERED: ELIQUIS5 MG PO (16:57)
[2021-07-04] MEDS ORDERED: LOPRESSOR50 MG PO (16:57)
[2021-07-04] MEDS ORDERED: SEROQUEL 25MG T25 MG PO (16:57)
[2021-07-05 04:05] LABS: BASOPHIL 0.1 % (0-2); EOSINOPHIL 1.6 % (0-7); HCT 26.4 % (37.0-47.0); HGB 8.6 g/dl (12.5-16.0); LYMPHOCYTE 3.4 % (15-48); MCH 28.6 pg (25.0-31.0); MCHC 32.6 g/dL (32.0-36.0); MCV 87.7 fL (78.0-100.0); MONOCYTE 5.4 % (0-12); MPV 9.9 fL (6.0-9.5); NEUTROPHIL 88.7 % (41-80); NRBC 0; PLT 216 K/uL (150-400); RBC 3.01 M/uL (4.20-5.40); RDW 17.4 % (11.5-14.0); WBC 8.6 K/uL (4.0-10.5)
--- NOTE | 2021-07-05 04:18 | NUR ---
NURSE INFORMED CLOTH BIN PACKER OF PT'S INCREASED BLOOD PRESSURE, CLOTH BIN PACKER SAID IT WAS OKAY TO CONTINUE TO MONITOR. NURSE ALSO INFORMED CLOTH BIN PACKER THE PT'S URINE WAS GETTING BLOODY, WE ARE CONTINUE TO MONITOR
[2021-07-05 04:21] LABS: BUN/CREAT RATIO (CALC) 25.4 RATIO; CREATININE 0.71 mg/dL (0.51-0.95); MAGNESIUM 1.7 mg/dL (1.8-2.4)
== END 2021-07-05 17:18 | DRG 871 ==
LOC: FER 17:10 → FTCU 20:52 → FMS 07-03 10:18
PROVIDERS: Allergy & Immunology Allergy; Emergency Medicine; Nurse Practitioner; ADMIT Internal Medicine
PROC: 30233N1 Transfusion of Nonautologous Red Blood Cells into Peripheral Vein, Percutaneous Approach (ICD-10-PCS; principal; 2021-06-26)
DX: A41.1 Sepsis due to other specified staphylococcus (principal); L89.323 Pressure ulcer of left buttock, stage 3; J96.01 Acute respiratory failure with hypoxia; G93.41 Metabolic encephalopathy; I26.99 Other pulmonary embolism without acute cor pulmonale; J18.9 Pneumonia, unspecified organism; N17.9 Acute kidney failure, unspecified; C83.39 Diffuse large B-cell lymphoma, extranodal and solid organ sites; E87.2 Acidosis; J98.11 Atelectasis; B49 Unspecified mycosis; F05 Delirium due to known physiological condition; I27.20 Pulmonary hypertension, unspecified; R65.20 Severe sepsis without septic shock; Z66 Do not resuscitate; L89.312 Pressure ulcer of right buttock, stage 2; L89.322 Pressure ulcer of left buttock, stage 2; Z20.822 Contact with and (suspected) exposure to COVID-19; M10.9 Gout, unspecified; F03.90 Unspecified dementia, unspecified severity, without behavioral disturbance, psychotic disturbance, mood disturbance, and anxiety; E53.8 Deficiency of other specified B group vitamins; I51.89 Other ill-defined heart diseases; D63.0 Anemia in neoplastic disease; R73.9 Hyperglycemia, unspecified; D86.9 Sarcoidosis, unspecified; Z90.49 Acquired absence of other specified parts of digestive tract; Z90.89 Acquired absence of other organs; Z90.710 Acquired absence of both cervix and uterus; Z98.890 Other specified postprocedural states; Z79.899 Other long term (current) drug therapy; Z91.040 Latex allergy status
CPT/HCPCS: 36415; 36430; 36600; 71045; 71275; 78580; 80048; 80053; 80202; 81003; 82270; 82803; 83605; 83735; 83880; 84145; 84484; 85014; 85018; 85025; 85379; 85610; 85730; 86850; 86900; 86901; 86922; 87040; 87077; 87088; 87186; 93005; 94010; 94640; 94660; 94667; 94668; 94760; 94762; A9540; C9113; J0637; J1200; J1644; J1650; J2060; J2543; J2916; J2920; J2930; J3370; J3475; J7030; J7040; J7050; J7070; J7512; P9016; Q9967; U0002